=== PATIENT | male | born 1960 | race Caucasian/White ===

== ENCOUNTER → 2019-04-13 | Day surgery (SDC) | payer BC ==
[~2019-04-13] MED LIST: Lactated Ringers 1,000 ML IV SCH; Propofol 200 MG/20 ML SDV IV ONE
[2019-04-13 10:33] VITALS: BP 122/60; PULSE 64
--- NOTE | 2019-04-13 11:45 | OR ---
DATE OF OPERATION: 04/13/2019 PREOPERATIVE DIAGNOSIS: CHRONIC GASTROESOPHAGEAL REFLUX DISEASE. POSTOPERATIVE DIAGNOSIS: CHRONIC GASTROESOPHAGEAL REFLUX DISEASE. SURGEON: Pino Leon MD PROCEDURE: FULL-LENGTH EGD WITH ANTRAL BIOPSIES X2, SONY. ANESTHESIA: MAC. COMPLICATIONS: None. SPECIMEN: 1. Antral biopsy x2. 2. Antral SONY. FINDINGS: 1. Full-length EGD. 2. Mild antral gastritis without erosion or ulceration. 3. Spontaneous GERD without esophagitis. 4. No gross hernias or signs of Acosta's changes, strictures, ulcerations, etc. RECOMMENDATIONS: Medical followup with Joellen Artis. INDICATIONS: The patient has had some ongoing issues with chronic reflux. He was sent for surveillance in that regard with a diagnostic EGD. DESCRIPTION OF PROCEDURE: The patient was prepped and draped, placed in the left lateral decubitus position. A lubricated Olympus gastroscope was inserted over a bit, advanced to cricopharyngeus area, and easily intubated into the esophagus. The esophageal lining was benign in its entire course. Z-line was crisp and sharp at 40 cm. There was spontaneous reflux, but no distal esophagitis, stricturing, ulceration, or Acosta's changes. No significant hiatal hernia seen. The scope was advanced into the stomach, through the pylorus, and into the second portion of the duodenum. This and the duodenal bulb were completely benign. The scope was brought back into the stomach and retroflexed. The upper fundus and cardia were unremarkable. From below, it looks like the patient may have a little bit of loosening around the EG junction, but minimal if any. Direct visualization of the rest of the fundus and antrum showed some antral gastritis, mild but active. No ulceration or erosions. Two biopsies were taken of field service representative areas along with a CLOtest. Air was then suctioned, scope removed without complication. HELADIO/SHANE /[id number]
== END ==
LOC: CC.SDS 08:33
PROVIDERS: ATTEND Family Medicine
DX: K21.9 Gastro-esophageal reflux disease without esophagitis (principal); K29.70 Gastritis, unspecified, without bleeding; I10 Essential (primary) hypertension; I25.10 Atherosclerotic heart disease of native coronary artery without angina pectoris; E11.9 Type 2 diabetes mellitus without complications; E78.5 Hyperlipidemia, unspecified; Z80.0 Family history of malignant neoplasm of digestive organs; Z79.899 Other long term (current) drug therapy; Z79.82 Long term (current) use of aspirin; Z79.84 Long term (current) use of oral hypoglycemic drugs
CPT/HCPCS: 43239; 87081; J2704; J7120

== ENCOUNTER → 2020-08-08 | Day surgery (SDC) | payer BC ==
[~2020-08-08] MED LIST changes: +Ketamine 200 MG/20 ML MDV ONE; -Propofol 200 MG/20 ML SDV IV ONE; +Propofol 200 MG/20 ML SDV ONE; +fentaNYL 100 MCG/2 ML SDV ONE
[2020-08-08 09:38] VITALS: BP 140/81; PULSE 76
--- NOTE | 2020-08-08 13:15 | OR ---
DATE OF OPERATION: 08/08/2020 PREOPERATIVE DIAGNOSIS: 1. PERSISTENT GASTROESOPHAGEAL REFLUX DISEASE. 2. ABDOMINAL PAIN. POSTOPERATIVE DIAGNOSIS: 1. PERSISTENT GASTROESOPHAGEAL REFLUX DISEASE. 2. ABDOMINAL PAIN. SURGEON: Pino Leon MD PROCEDURE: 1. DIAGNOSTIC EGD WITH BIOPSY X1, SONY. 2. FULL-LENGTH COLONOSCOPY WITH FORCEPS POLYP REMOVAL X3. ANESTHESIA: MAC. COMPLICATIONS: None. SPECIMEN: 1. Antral SONY. 2. Antral biopsy x1. 3. Three small sessile polyps of colon, see report. FINDINGS: 1. Full-length EGD. 2. Minimal chronic antral gastritis. 3. Small hiatal hernia with GERD without esophagitis or Acosta's changes. 4. Full-length colonoscopy. 5. Three small sessile polyps, all less than 3 mm. RECOMMENDATIONS: Continue with proton pump therapy for patient's reflux. Recommend followup colonoscopy in 5 years. INDICATIONS: The patient was in for a routine physical. He has been having some ongoing issues with reflux. He has been taking Zantac with mild-to- moderate relief. He has also been having some occasional abdominal pain. It has been some time since his last colonoscopy. We elected to proceed with both upper and lower scopes. DESCRIPTION OF PROCEDURE: The patient was prepped and draped, placed in the left lateral decubitus position. A lubricated Olympus gastroscope was inserted over a bit, advanced to cricopharyngeus area, and easily intubated into the esophagus. The esophageal lining was benign in its entire course. The Z-line was crisp at 40 cm. There was a small hernia present with no gross reflux seen. The scope was advanced into the stomach, through the pylorus, and into the second portion of the duodenum. This and the duodenal bulb were completely benign. The scope was brought back into the stomach and retroflexed. The upper fundus and cardia were unremarkable. Upon straightening, the rest of the fundus appeared benign. The antrum does have some very mild and nonspecific chronic- appearing gastritis in its midportion. We did do a biopsy of this and a CLOtest. Air was then suctioned from the stomach and the scope was removed without complication. A lubricated Olympus colonoscope was then inserted and easily advanced to the cecum. Direct visualization of the ileocecal valve and appendiceal orifice was accomplished. The bowel prep was excellent. Upon withdrawal of the scope, the cecum and ascending colon were benign. At the hepatic flexure, the patient had a small hyperplastic-appearing polyp approximately 3 mm removed in its entirety with a forceps. The rest of the transverse colon was benign. Just past the splenic flexure in the proximal descending colon, the patient had another second small hyperplastic polyp also removed with a forceps. The sigmoid and rectosigmoid areas appeared completely benign without any polyps, masses, ulceration, or bleeding sites. No vascular abnormalities or signs of colitis. There were no diverticula. The rectosigmoid junction did have 1 small hyperplastic-appearing polyp as well which was removed. The rectum itself was benign. Retroflexion showed no perianal lesions. Air was suctioned and the scope removed without complication. HELADIO/SHANE /[id number]
== END ==
LOC: CC.SDS 08:11
PROVIDERS: ATTEND Family Medicine
DX: D12.3 Benign neoplasm of transverse colon (principal); D12.5 Benign neoplasm of sigmoid colon; K21.9 Gastro-esophageal reflux disease without esophagitis; K29.50 Unspecified chronic gastritis without bleeding; K44.9 Diaphragmatic hernia without obstruction or gangrene; I25.10 Atherosclerotic heart disease of native coronary artery without angina pectoris; N40.1 Benign prostatic hyperplasia with lower urinary tract symptoms; R35.1 Nocturia; Z01.812 Encounter for preprocedural laboratory examination; Z20.822 Contact with and (suspected) exposure to COVID-19; E11.9 Type 2 diabetes mellitus without complications; E78.5 Hyperlipidemia, unspecified; I10 Essential (primary) hypertension; E55.9 Vitamin D deficiency, unspecified; Z79.82 Long term (current) use of aspirin; Z79.899 Other long term (current) drug therapy; Z79.84 Long term (current) use of oral hypoglycemic drugs
CPT/HCPCS: 00813; 82962; 87081; J2001; J2704; J3010; J7120

== ENCOUNTER 2022-11-08 20:25 | Emergency (ER) | payer BC ==
[2022-11-08 20:57] LABS: PTT,PARTIAL THROMBOPLSTIN TIME 22.5 SEC (20.0-30.0)
[2022-11-08 21:02] LABS: CHLORIDE,CL 106 mEq/L (98-106); SODIUM,NA 144 mEq/L (136-145)
[2022-11-08 21:03] LABS: ESTIMATED GFR 58 mL/min (>=60)
[2022-11-08] MEDS ORDERED: Clopidogrel 75 MG Tab PO ONE (22:00)
[2022-11-08 22:49] VITALS: BP 130/69; PULSE 74
== END 2022-11-08 22:15 | disposition home or self-care (01) ==
LOC: CC.ED 20:25
DX: G45.9 Transient cerebral ischemic attack, unspecified (principal); I10 Essential (primary) hypertension; E78.00 Pure hypercholesterolemia, unspecified; I25.2 Old myocardial infarction; K21.9 Gastro-esophageal reflux disease without esophagitis; Z79.899 Other long term (current) drug therapy
CPT/HCPCS: 36415; 70450; 80048; 82550; 84484; 85025; 85610; 85730; 93010; 99284; 99285; A9270-GY